=== PATIENT | male | born 1950 | race Caucasian/White ===

== ENCOUNTER 2017-10-23 16:20 | Emergency (ER) | payer OTHER ==
[~2017-10-23] VITALS: Ht 177.8 cm; Wt 120.2 kg
[2017-10-23 16:23] VITALS: Ht 177.8 cm; Wt 120.2 kg
[2017-10-23 17:06] LABS: BASOPHIL % 0.4 % (0-2); PLATELET COUNT 180 x10^3mcL (130-400); RED CELL DISTRIBUTION WIDTH 14.3 % (11.5-14.5)
[2017-10-23 17:19] LABS: CALCIUM 9.2 mg/dL (8.5-10.1); CARBON DIOXIDE 25.9 mmol/L (21-32); CREATININE SERUM 1.6 mg/dL (0.7-1.3); POTASSIUM SERUM 3.8 mmol/L (3.5-5.1)
[2017-10-23 17:24] LABS: ALBUMIN 3.9 g/dL (3.4-5.0); BILIRUBIN TOTAL 0.7 mg/dL (0.20-1.00); TOTAL PROTEIN, SERUM 7.1 g/dL (6.4-8.2)
[2017-10-23 17:27] LABS: CHOLESTEROL/HDL RATIO 2.8; T3 TOTAL 1.1 ng/mL
[2017-10-23 17:40] LABS: UA SPECIFIC GRAVITY >=1.030 (1.005-1.035); microscopic required? YES; urine erythrocyte 3+ (NEGATIVE)
[2017-10-23 17:49] LABS: FREE T4 0.91 ng/dL (0.76-1.46); FREE THYROXINE INDEX 2.9 ug/dL (1.4-4.5)
[2017-10-23 19:57] VITALS: BP 136/82
== END 2017-10-23 19:57 | disposition home or self-care (01) ==
LOC: ED 16:20
PROVIDERS: Specialist
DX: R10.32 Left lower quadrant pain (principal); R31.29 Other microscopic hematuria; E78.00 Pure hypercholesterolemia, unspecified; Z88.1 Allergy status to other antibiotic agents
CPT/HCPCS: 83880; 84439; J1885; J2405; J3010; J7030; Q0092; Q9967